=== PATIENT | male | born 1990 | race African-American/Black ===

== ENCOUNTER 2018-10-21 13:33 | Emergency (ER) | payer MEDICAID ==
[~2018-10-21] VITALS: Ht 180.3 cm; Wt 79.5 kg
[~2018-10-21 13:33] MED LIST: ALBU8.5H4 IH; TRIA15CR61 TP
[2018-10-21 13:43] VITALS: BP 116/71
[2018-10-21] MEDS ORDERED: MUPI22OI30 TOP (15:04)
[2018-10-21] MEDS ORDERED: mupirocin 2% ointment 22GM TP STA (15:04)
[2018-10-21] MEDS ORDERED: CEPH-572 PO (15:04)
== END 2018-10-21 15:48 | disposition home or self-care (01) ==
LOC: ER 13:34
DX: S61.411A Laceration without foreign body of right hand, initial encounter (principal); S61.412A Laceration without foreign body of left hand, initial encounter; S80.812A Abrasion, left lower leg, initial encounter; L08.89 Other specified local infections of the skin and subcutaneous tissue; J45.909 Unspecified asthma, uncomplicated; Z59.0 Homelessness; Z56.0 Unemployment, unspecified; Z88.5 Allergy status to narcotic agent; Z88.0 Allergy status to penicillin; W01.0XXA Fall on same level from slipping, tripping and stumbling without subsequent striking against object, initial encounter; Y93.02 Activity, running; Y92.89 Other specified places as the place of occurrence of the external cause; Y99.9 Unspecified external cause status
CPT/HCPCS: 99284

== ENCOUNTER 2019-03-14 11:44 | Emergency (ER) | payer MEDICAID, OTHER ==
[~2019-03-14] VITALS: Ht 180.3 cm; Wt 8.0 kg
[~2019-03-14 11:44] MED LIST changes: +CEPH-571 PO
[2019-03-14] MEDS ORDERED: TETanus/Pertussis (Acell)/Diphther VAC/PF (Tdap-Adult) 0.5ml syringe IM ONE (11:55)
[2019-03-14] MEDS ORDERED: LIDOcaine 1% w/EPI 1:200,000 injection 10mL vial IM ONE (11:55)
[2019-03-14 12:00] VITALS: BP 125/76
[2019-03-14] MEDS ORDERED: LIDOcaine 1% W/epiNEPHrine 1:100,000 20ml vial IJ ONE (12:00)
== END 2019-03-14 13:22 | disposition home or self-care (01) ==
LOC: ER 11:45
DX: S61.011A Laceration without foreign body of right thumb without damage to nail, initial encounter (principal); J45.909 Unspecified asthma, uncomplicated; F15.90 Other stimulant use, unspecified, uncomplicated; Z59.0 Homelessness; Z56.0 Unemployment, unspecified; Z88.5 Allergy status to narcotic agent; Z88.0 Allergy status to penicillin; W26.0XXA Contact with knife, initial encounter; Y93.89 Activity, other specified; Y92.89 Other specified places as the place of occurrence of the external cause; Y99.9 Unspecified external cause status
CPT/HCPCS: 12001; 90471; 99283

== ENCOUNTER 2019-07-09 16:11 | Emergency (ER) | payer MEDICAID, OTHER ==
[~2019-07-09] VITALS: Ht 154.9 cm; Wt 79.0 kg
[2019-07-09] MEDS ORDERED: ipratropium/albuterol 3ml nebule NEB ONE (17:10)
[2019-07-09] MEDS ORDERED: predniSONE 20 mg tablet PO ONE (17:10)
[2019-07-09] MEDS ORDERED: PRED20TA PO (17:11)
[2019-07-09] MEDS ORDERED: ALBU8HFA PO (17:15)
--- NOTE | 2019-07-09 17:40 | NUR ---
RT AT BEDSIDE.
--- NOTE | 2019-07-09 17:57 | NUR ---
NO PEAK FLOWS AVAILABLE. NICANOR PAYNE NOTIFIED
[2019-07-09 18:11] VITALS: BP 110/72
== END 2019-07-09 18:12 | disposition home or self-care (01) ==
LOC: ER 16:11
DX: J45.901 Unspecified asthma with (acute) exacerbation (principal); J06.9 Acute upper respiratory infection, unspecified; F15.90 Other stimulant use, unspecified, uncomplicated; Z59.0 Homelessness; Z56.0 Unemployment, unspecified; Z88.5 Allergy status to narcotic agent; Z88.0 Allergy status to penicillin; Z79.899 Other long term (current) drug therapy
CPT/HCPCS: 94640; 99283; J7512; 94760

== ENCOUNTER 2020-01-16 03:02 | Emergency (ER) | payer OTHER ==
[~2020-01-16] VITALS: Ht 180.3 cm; Wt 79.5 kg
--- NOTE | 2020-01-16 03:10 | NUR ---
patient in bed hob at 45 degrees rr even un labored airway patent will continue to monitor
--- NOTE | 2020-01-16 04:03 | NUR ---
patient in bed hob 45% rr even un labored patient easy to arouse aox4 observably sleepy, airway patent, will continue to monitor
--- NOTE | 2020-01-16 05:03 | NUR ---
Patient in bed covers on hob at 45 degrees eyes closed rr even unlabored airway patent [id number] easy to arouse will continue to observe
--- NOTE | 2020-01-16 05:41 | NUR ---
patient in bed eyes closed hob 45 degrees rr even un labored airway patent aox4 easy to arouse will continue to monitor
[2020-01-16 05:42] VITALS: BP 125/79
== END 2020-01-16 06:03 | disposition home or self-care (01) ==
LOC: ER 03:03
DX: T50.901A Poisoning by unspecified drugs, medicaments and biological substances, accidental (unintentional), initial encounter (principal); F15.90 Other stimulant use, unspecified, uncomplicated; Z56.0 Unemployment, unspecified; Z59.0 Homelessness; Z88.5 Allergy status to narcotic agent; Z88.0 Allergy status to penicillin; Z79.2 Long term (current) use of antibiotics; Z79.899 Other long term (current) drug therapy; Y92.89 Other specified places as the place of occurrence of the external cause
CPT/HCPCS: 99284

== ENCOUNTER 2020-11-15 20:22 | Inpatient (IN) | payer MEDICAID ==
[~2020-11-15] VITALS: Ht 180.3 cm; Wt 77.3 kg
[2020-11-15] MEDS ORDERED: normal saline 1000ML IV soln IVB ONE (20:25)
[2020-11-15] MEDS ORDERED: ketorolac trometh. 30mg/ml inj. IV ONE (20:25)
[2020-11-15] MEDS ORDERED: ondansetron/PF 4mg/2ml inj IV ONE (20:25)
[2020-11-15] MEDS ORDERED: temazepam 15mg capsule PO PRN (21:00)
[2020-11-15 21:27] LABS: EOSINOPHILS % (AUTO) 0.1 % (0-6); LYMPHOCYTES # (AUTO) 0.4 X10'3 (1.1-4.8); RED CELL DISTRIBUTION WIDTH 13.3 % (11.5-14.5); WHITE BLOOD COUNT 15.4 X10'3 (4.5-11.0)
[2020-11-15 21:28] LABS: BASOPHILS % (AUTO) 0.2 % (0-1); HEMATOCRIT 46.4 % (42.0-52.0); HEMOGLOBIN 16.1 g/dl (14.0-17.9); LYMPHOCYTES % (AUTO) 2.6 % (21-51); MEAN CORPUSCULAR HEMOGLOBIN 29.5 PG (27.0-31.0); MEAN CORPUSCULAR HGB CONC 34.6 g/dL (33.0-36.5); MEAN CORPUSCULAR VOLUME 85.3 FL (78-98); MEAN PLATELET VOLUME 7.6 FL (7.4-10.4); MONOCYTES # (AUTO) 0.3 X10'3 (0-0.9); MONOCYTES % (AUTO) 2.1 % (2-12); NEUTROPHILS # (AUTO) 14.7 X10'3 (1.8-7.7); PLATELET COUNT 379 X10'3 (140-440); RED BLOOD COUNT 5.45 X10'6 (4.70-6.10)
--- NOTE | 2020-11-15 21:31 | NUR ---
Pt stated he is unable to urinate due to dehydration. Pt states that he hasn't drank anything all day.
[2020-11-15] MEDS ORDERED: acetaminophen 325mg tablet PO ONE (21:50)
[2020-11-15] MEDS ORDERED: normal saline 1000ML IV soln IV ONE (21:50)
[2020-11-15] MEDS ORDERED: CefTRIAXone 2gm/D5W 50ml BAG 50 ML IV ONE (21:50)
[2020-11-15] MEDS ORDERED: doxycycline inj 100 MG in normal saline 100ml IV soln 100 ML IV ONE (21:57)
[2020-11-15] MEDS ORDERED: morphine 2 MG/ML inj. syringe IV PRN ×2 (22:45)
[2020-11-15] MEDS ORDERED: magnesium hydroxide 30ml (MOM) UD suspension PO PRN (22:45)
[2020-11-15] MEDS ORDERED: ipratropium/albuterol 3ml nebule NEB PRN (22:45)
[2020-11-15] MEDS ORDERED: diphenhydrAMINE 50 mg/ml inj IV PRN (22:45)
[2020-11-15] MEDS ORDERED: mag hydrox/Alum hydrox/simeth 30ml oral suspension PO PRN (22:45)
[2020-11-15] MEDS ORDERED: diphenhydrAMINE 25mg capsule PO PRN (22:45)
[2020-11-15] MEDS ORDERED: bisacodyl 10mg suppository rectal RC PRN (22:45)
[2020-11-15] MEDS ORDERED: acetaminophen 650mg rectal suppository RC PRN (22:45)
[2020-11-15] MEDS ORDERED: ondansetron 4mg rapidly disintigrating tab PO PRN (22:45)
[2020-11-15] MEDS ORDERED: ondansetron/PF 4mg/2ml inj IV PRN (22:45)
[2020-11-15] MEDS: normal saline 1000ml 1,000 ML IV SCH (22:45)
[2020-11-15 23:26] LABS: ALANINE AMINOTRANSFERASE 21 U/L (12-78); ALBUMIN 3.1 G/DL (3.4-5.0); ALBUMIN/GLOBULIN RATIO 0.7 (1.1-1.5); ALKALINE PHOSPHATASE 65 IU/L (46-116); ANION GAP 10 (8-16); ASPARTATE AMINO TRANSFERASE 23 U/L (10-37); BILIRUBIN,TOTAL 0.9 MG/DL (0.1-1.0); BLOOD UREA NITROGEN 21 MG/DL (7-18); BUN/CREATININE RATIO 13.7 (5.4-32.0); CALCIUM 8.6 MG/DL (8.5-10.1); CHLORIDE 99 MMOL/L (99-107); CREATININE 1.53 MG/DL (0.60-1.10); GLUCOSE 109 MG/DL (70-104); LIPASE 51 U/L (73-393); POTASSIUM 4.7 MMOL/L (3.5-5.1); SODIUM 135 MMOL/L (135-145); TOTAL CARBON DIOXIDE 25.9 MMOL/L (24-32); TOTAL PROTEIN 7.3 G/DL (6.4-8.2); eGFR 64 ML/MIN
[2020-11-15 23:48] LABS: HEMOGLOBIN A1C 5.6 % (4.5-6.2)
[2020-11-15] MEDS ORDERED: NO HOME MEDS (23:52)
[2020-11-15 23:59] LABS: MAGNESIUM 1.5 MG/DL (1.5-2.4); PHOSPHORUS 3.2 MG/DL (2.3-4.5)
[2020-11-16 01:18] LABS: PARTIAL THROMBOPLASTIN TIME 32 SECONDS (22-32)
[2020-11-16 02:23] LABS: COLOR,URINE YELLOW (Yellow); GLUCOSE, URINE NEGATIVE (Neg); KETONES,URINE NEGATIVE (Neg); LEUKOCYTE ESTERASE ,URINE MODERATE (Neg); NITRITES, URINE NEGATIVE (Neg); OCCULT BLOOD,URINE NEGATIVE (Neg); PH,URINE 6.5 (4.8-8.0); PROTEIN,URINE NEGATIVE (Neg)
[2020-11-16 02:32] LABS: CLARITY,URINE SLIGHTLY CLOUDY (Clear); UA COLLECTION TYPE CLN CATCH MIDSTREAM
[2020-11-16 02:33] LABS: BACTERIA,URINE FEW /HPF (Neg); RBC,URINE NONE SEEN /HPF (0-2); SQUAMOUS EPITHELIAL CELL,UR FEW /LPF (FEW); WBC CLUMPS,URINE FEW /HPF (NEGATIVE)
--- NOTE | 2020-11-16 03:56 | NUR ---
Pt asleep with observed chest rise and fall.
[2020-11-16] MEDS ORDERED: ipratropium/albuterol 3ml nebule IH PRN (04:50)
[2020-11-16 06:38] LABS: BASOPHILS % (AUTO) 0.3 % (0-1); EOSINOPHILS % (AUTO) 0.2 % (0-6); HEMATOCRIT 45.8 % (42.0-52.0); HEMOGLOBIN 15.5 g/dl (14.0-17.9); LYMPHOCYTES # (AUTO) 0.4 X10'3 (1.1-4.8); LYMPHOCYTES % (AUTO) 4.7 % (21-51); MEAN CORPUSCULAR HEMOGLOBIN 29.2 PG (27.0-31.0); MEAN CORPUSCULAR HGB CONC 33.9 g/dL (33.0-36.5); MEAN CORPUSCULAR VOLUME 86.3 FL (78-98); MEAN PLATELET VOLUME 8.5 FL (7.4-10.4); MONOCYTES # (AUTO) 0.2 X10'3 (0-0.9); NEUTROPHILS # (AUTO) 7.6 X10'3 (1.8-7.7); NEUTROPHILS % (AUTO) 92.8 % (42-75); PLATELET COUNT 302 X10'3 (140-440); RED BLOOD COUNT 5.31 X10'6 (4.70-6.10); RED CELL DISTRIBUTION WIDTH 13.8 % (11.5-14.5); WHITE BLOOD COUNT 8.1 X10'3 (4.5-11.0)
[2020-11-16 07:40] LABS: ALANINE AMINOTRANSFERASE 34 U/L (12-78); ALBUMIN 2.4 G/DL (3.4-5.0); ALBUMIN/GLOBULIN RATIO 0.6 (1.1-1.5); ALKALINE PHOSPHATASE 60 IU/L (46-116); ANION GAP 9 (8-16); BILIRUBIN,TOTAL 0.6 MG/DL (0.1-1.0); BLOOD UREA NITROGEN 21 MG/DL (7-18); BUN/CREATININE RATIO 15.6 (5.4-32.0); CALCIUM 7.9 MG/DL (8.5-10.1); CHLORIDE 104 MMOL/L (99-107); CHOL/HDL RATIO 1.7 (0.00-4.99); CHOLESTEROL 82 MG/DL (0-200); CREATININE 1.35 MG/DL (0.60-1.10); GLUCOSE 81 MG/DL (70-104); HDL CHOLESTEROL 47 MG/DL (35-60); LDL CHOLESTEROL 20 MG/DL (50-100); SODIUM 138 MMOL/L (135-145); TOTAL CARBON DIOXIDE 24.8 MMOL/L (24-32); TOTAL PROTEIN 6.4 G/DL (6.4-8.2); TRIGLYCERIDES 31 MG/DL (20-135); eGFR 74 ML/MIN
[2020-11-16 07:41] LABS: ASPARTATE AMINO TRANSFERASE 41 U/L (10-37)
[2020-11-16] MEDS: nicotine 21mg patch - 24 hr TD SCH (07:59)
[2020-11-16] MEDS: docusate sod 100mg capsule PO SCH ×2 (07:59→20:03)
[2020-11-16] MEDS: CefTRIAXone/D5W-Rocephin 1gm 50 ML IV SCH ×2 (07:59→20:04)
[2020-11-16] MEDS: heparin, porcine 5000 units/ml vial SQ SCH ×2 (08:00→20:04)
[2020-11-16] MEDS: pantoprazole 40mg Tablet.DR PO SCH (08:00)
[2020-11-16] MEDS: azithromycin/NS 500mg/250ml 250 ML IV SCH (08:40)
[2020-11-16] MEDS: normal saline 1000ml 1,000 ML IV SCH ×2 (08:45→18:45)
--- NOTE | 2020-11-16 09:37 | NUR ---
PT REQUESTING BREATHING TREATMENT, PAGE RT.
--- NOTE | 2020-11-16 09:45 | NUR ---
PT RECEIVING BREATHING TREATMENT.
[2020-11-16 10:09] LABS: URINE AMPHETAMINE SCREEN POSITIVE (Neg); URINE BARBITUATE SCREEN NEGATIVE (Neg); URINE BENZODIAZEPINES SCREEN NEGATIVE (Neg); URINE CANNABINOID SCREEN NEGATIVE (Neg); URINE COCAINE SCREEN NEGATIVE (Neg); URINE METHADONE SCREEN NEGATIVE (Neg); URINE OPIATE SCREEN NEGATIVE (Neg); URINE PHENCYCLIDINE SCREEN NEGATIVE (Neg)
[2020-11-16 11:05] LABS: PLATELET ESTIMATE NORMAL; TOTAL CELLS COUNTED 100
[2020-11-16 11:06] LABS: BURR CELLS FEW
[2020-11-16 11:07] LABS: ACANTHOCYTES FEW; SCHISTOCYTES FEW; TOXIC VACUOLATION 2+
[2020-11-16] MEDS: HYDROcodone/acetaminophen 5mg/325mg tablet PO PRN (11:53)
[2020-11-16 12:03] VITALS: BP 104/69
[2020-11-16 15:00] VITALS: BP 109/71
[2020-11-16 18:00] VITALS: BP 108/68
[2020-11-16] MEDS: acetaminophen 325mg tablet PO PRN (18:01)
--- NOTE | 2020-11-16 18:27 | NUR ---
Patient in room PCU 3024. I have received report from Luisa ELDER and had the opportunity to ask questions and assume patient care. Rounded on patient and introduced self. Patient would like a shower tonight, denies other needs.
[2020-11-16] MEDS: lactobacillus rhamnosus 10,000 MMU CELLS/CAPSULE PO SCH (20:03)
[2020-11-16 20:22] VITALS: BP 116/73
--- NOTE | 2020-11-16 20:22 | NUR ---
Patient had 11 beat run of ventricular tachycardia. Patient remained asymptomatic, BP: 116/73, HR 105, RR 20, SpO2 95% RA. Patient has no complaints of chest pain or shortness of breath. Patient is sleeping. Notified Dr. Prescott via telephone, no new orders.
[2020-11-16] MEDS ORDERED: albuterol 2.5 MG/3 ML nebule NEB PRN (21:05)
[2020-11-16 22:00] VITALS: BP 122/78
--- NOTE | 2020-11-17 01:25 | NUR ---
During hourly rounds patient was laying on left side and complaining of right sided non radiating neck pain. Patient has full range of motion and can touch chin to chest. Patient denies pain on palpation. Encouraged patient to change position to see if this helps. Will continue to monitor.
[2020-11-17 02:00] VITALS: BP 115/65
[2020-11-17] MEDS: acetaminophen 325mg tablet PO PRN (02:25)
[2020-11-17] MEDS: normal saline 1000ml 1,000 ML IV SCH ×3 (04:45→17:52)
--- NOTE | 2020-11-17 05:40 | NUR ---
Patient slept all shift. Patient slept in slouched position, attempted to support head and neck with pillow and encouraged repositioning to alleviate neck pain.
[2020-11-17 06:00] VITALS: BP 100/72
--- NOTE | 2020-11-17 06:24 | NUR ---
Problems reprioritized. Patient report given, questions answered & plan of care reviewed with Trinidad ELDER.
--- NOTE | 2020-11-17 06:40 | NUR ---
Patient in room PCU 3021T. I have received report from JERROD SALINAS and had the opportunity to ask questions and assume patient care.
[2020-11-17 07:26] LABS: BASOPHILS % (AUTO) 0.3 % (0-1); EOSINOPHILS # (AUTO) 0.3 X10'3 (0-0.9); EOSINOPHILS % (AUTO) 2.2 % (0-6); HEMATOCRIT 42.3 % (42.0-52.0); LYMPHOCYTES # (AUTO) 0.9 X10'3 (1.1-4.8); MEAN CORPUSCULAR HEMOGLOBIN 28.8 PG (27.0-31.0); MEAN CORPUSCULAR HGB CONC 33.1 g/dL (33.0-36.5); MEAN CORPUSCULAR VOLUME 86.9 FL (78-98); MEAN PLATELET VOLUME 8.2 FL (7.4-10.4); MONOCYTES # (AUTO) 0.4 X10'3 (0-0.9); MONOCYTES % (AUTO) 2.9 % (2-12); NEUTROPHILS # (AUTO) 13.5 X10'3 (1.8-7.7); NEUTROPHILS % (AUTO) 88.6 % (42-75); PLATELET COUNT 268 X10'3 (140-440); RED BLOOD COUNT 4.87 X10'6 (4.70-6.10); RED CELL DISTRIBUTION WIDTH 13.2 % (11.5-14.5); WHITE BLOOD COUNT 15.2 X10'3 (4.5-11.0)
[2020-11-17 07:49] LABS: ALANINE AMINOTRANSFERASE 26 U/L (12-78); ALBUMIN 2.2 G/DL (3.4-5.0); ALBUMIN/GLOBULIN RATIO 0.5 (1.1-1.5); ALKALINE PHOSPHATASE 72 IU/L (46-116); ANION GAP 10 (8-16); ASPARTATE AMINO TRANSFERASE 25 U/L (10-37); BILIRUBIN,TOTAL 0.3 MG/DL (0.1-1.0); BLOOD UREA NITROGEN 12 MG/DL (7-18); CALCIUM 8.8 MG/DL (8.5-10.1); CHLORIDE 102 MMOL/L (99-107); GLUCOSE 82 MG/DL (70-104); POTASSIUM 4.3 MMOL/L (3.5-5.1); SODIUM 136 MMOL/L (135-145); TOTAL PROTEIN 6.5 G/DL (6.4-8.2); eGFR 85 ML/MIN
[2020-11-17] MEDS: budesonide 0.5mg/2ml UD nebule IH SCH ×2 (08:00→20:14)
[2020-11-17] MEDS: ipratropium/albuterol 3ml nebule NEB SCH ×2 (08:05→20:15)
[2020-11-17 08:34] LABS: TOTAL CELLS COUNTED 100
[2020-11-17 08:54] LABS: PLATELET ESTIMATE NORMAL
[2020-11-17 08:55] LABS: BURR CELLS 1+
[2020-11-17] MEDS: CefTRIAXone/D5W-Rocephin 1gm 50 ML IV SCH (09:30)
[2020-11-17] MEDS: heparin, porcine 5000 units/ml vial SQ SCH ×2 (09:30→19:42)
[2020-11-17] MEDS: lactobacillus rhamnosus 10,000 MMU CELLS/CAPSULE PO SCH ×2 (09:31→19:43)
[2020-11-17] MEDS: docusate sod 100mg capsule PO SCH ×2 (09:31→19:42)
[2020-11-17] MEDS: nicotine 21mg patch - 24 hr TD SCH (09:31)
[2020-11-17] MEDS: pantoprazole 40mg Tablet.DR PO SCH (09:33)
[2020-11-17] MEDS: azithromycin/NS 500mg/250ml 250 ML IV SCH (10:38)
[2020-11-17 11:00] VITALS: BP 110/68
[2020-11-17 15:00] VITALS: BP 123/73
[2020-11-17 18:00] VITALS: BP 117/75
--- NOTE | 2020-11-17 18:27 | NUR ---
Problems reprioritized. Patient report given, questions answered & plan of care reviewed with JERROD JENKINS.
--- NOTE | 2020-11-17 18:34 | NUR ---
Patient in room PCU 3024. I have received report from Trinidad ELDER and had the opportunity to ask questions and assume patient care.
[2020-11-17] MEDS: HYDROcodone/acetaminophen 5mg/325mg tablet PO PRN (19:43)
[2020-11-17] MEDS ORDERED: vancomycin inj 1,000 MG in normal saline 250ml IV soln 250 ML IV ONE (19:45)
[2020-11-17] MEDS: cefepime 2g/NS 100ml ADVANTAGE 100 ML IV SCH (21:34)
[2020-11-17 22:00] VITALS: BP 122/74
[2020-11-17] MEDS: vancomycin inj 1,000 MG in normal saline 250ml IV soln 250 ML IV SCH (23:08)
[2020-11-18] MEDS: vancomycin inj 1,000 MG in normal saline 250ml IV soln 250 ML IV SCH (01:28)
[2020-11-18 02:00] VITALS: BP 117/68
--- NOTE | 2020-11-18 04:10 | NUR ---
Spoke to patient regarding communicating with sister Ketan Whitmore. Patient is comfortable with staff talking to her about his care. Please call her if anything changes. [phone]
[2020-11-18] MEDS: normal saline 1000ml 1,000 ML IV SCH (05:44)
[2020-11-18 06:00] VITALS: BP 117/58
--- NOTE | 2020-11-18 06:21 | NUR ---
Problems reprioritized. Patient report given, questions answered & plan of care reviewed with Anjali ELDER.
--- NOTE | 2020-11-18 06:29 | NUR ---
Patient in room PCU 3024. I have received report from Radha ELDER and had the opportunity to ask questions and assume patient care.
[2020-11-18 07:14] LABS: BASOPHILS # (AUTO) 0.1 X10'3 (0-0.2); BASOPHILS % (AUTO) 0.5 % (0-1); EOSINOPHILS # (AUTO) 0.4 X10'3 (0-0.9); EOSINOPHILS % (AUTO) 3.2 % (0-6); HEMATOCRIT 36.9 % (42.0-52.0); HEMOGLOBIN 12.6 g/dl (14.0-17.9); LYMPHOCYTES % (AUTO) 8.8 % (21-51); MEAN CORPUSCULAR HEMOGLOBIN 29.1 PG (27.0-31.0); MEAN CORPUSCULAR HGB CONC 34.2 g/dL (33.0-36.5); MEAN CORPUSCULAR VOLUME 85.2 FL (78-98); MEAN PLATELET VOLUME 8.2 FL (7.4-10.4); MONOCYTES # (AUTO) 0.8 X10'3 (0-0.9); MONOCYTES % (AUTO) 6.9 % (2-12); NEUTROPHILS # (AUTO) 9.3 X10'3 (1.8-7.7); NEUTROPHILS % (AUTO) 80.6 % (42-75); PLATELET COUNT 293 X10'3 (140-440); RED BLOOD COUNT 4.33 X10'6 (4.70-6.10); RED CELL DISTRIBUTION WIDTH 13.3 % (11.5-14.5); WHITE BLOOD COUNT 11.6 X10'3 (4.5-11.0)
[2020-11-18] MEDS: cefepime 2g/NS 100ml ADVANTAGE 100 ML IV SCH (07:37)
[2020-11-18] MEDS: lactobacillus rhamnosus 10,000 MMU CELLS/CAPSULE PO SCH (07:40)
[2020-11-18] MEDS: pantoprazole 40mg Tablet.DR PO SCH (07:40)
[2020-11-18] MEDS: docusate sod 100mg capsule PO SCH (07:41)
[2020-11-18] MEDS: heparin, porcine 5000 units/ml vial SQ SCH (07:43)
[2020-11-18 07:46] LABS: ALANINE AMINOTRANSFERASE 34 U/L (12-78); ALBUMIN/GLOBULIN RATIO 0.5 (1.1-1.5); ALKALINE PHOSPHATASE 66 IU/L (46-116); ANION GAP 9 (8-16); ASPARTATE AMINO TRANSFERASE 26 U/L (10-37); BILIRUBIN,TOTAL 0.2 MG/DL (0.1-1.0); BLOOD UREA NITROGEN 10 MG/DL (7-18); BUN/CREATININE RATIO 10.8 (5.4-32.0); CALCIUM 8.5 MG/DL (8.5-10.1); CHLORIDE 104 MMOL/L (99-107); CREATININE 0.93 MG/DL (0.60-1.10); GLUCOSE 91 MG/DL (70-104); POTASSIUM 3.4 MMOL/L (3.5-5.1); SODIUM 137 MMOL/L (135-145); TOTAL CARBON DIOXIDE 24.3 MMOL/L (24-32); TOTAL PROTEIN 6.2 G/DL (6.4-8.2); eGFR > 90 ML/MIN
[2020-11-18] MEDS: ipratropium/albuterol 3ml nebule NEB SCH ×2 (07:46→14:53)
[2020-11-18] MEDS: budesonide 0.5mg/2ml UD nebule IH SCH (07:46)
[2020-11-18] MEDS: nicotine 21mg patch - 24 hr TD SCH (08:00)
[2020-11-18] MEDS ORDERED: vancomycin/NS 1 GM ADD-VANTAGE 250 ML IV SCH (08:00)
[2020-11-18] MEDS ORDERED: potassium Cl 40MEQ/1/2NS 520ml 520 ML IV PRN ×2 (10:30)
[2020-11-18] MEDS ORDERED: potassium Cl 20 mEq SR tablet PO PRN ×2 (10:30)
[2020-11-18] MEDS ORDERED: LEVO750T46 PO (10:58)
[2020-11-18] MEDS ORDERED: NICO-687 TD ×2 (10:58)
[2020-11-18 11:00] VITALS: BP 124/67
[2020-11-18] MEDS ORDERED: levoFLOXACIN 500mg tablet PO SCH (11:00)
[2020-11-18] MEDS ORDERED: levoFLOXACIN 750MG TABLET PO SCH (11:00)
--- NOTE | 2020-11-18 15:30 | NUR ---
Patient stable for discharge per MD. DC'd PIV with cannula intact, DC'd tele. Per Alvina pts prescription paid for by hospital at [facility] on [address]. Hospital provided safe transportation via [employer]. Pt verbalized understanding of discharge paperwork and medication regimine.
[2020-11-18] MEDS ORDERED: K and/or MAG REPLACEMENT MC SCH (20:00)
[2020-11-19] MEDS ORDERED: VANCOMYCIN LEVEL IV ONE (07:30)
== END 2020-11-18 15:19 | disposition home or self-care (01) | DRG 720 ==
LOC: ER 20:23 → ED HOLD 22:45 → PCU 3S 11-16 11:22
PROVIDERS: ADMIT Family Medicine; ATTEND Family Medicine
DX: A40.3 Sepsis due to Streptococcus pneumoniae (principal); N17.0 Acute kidney failure with tubular necrosis; J18.9 Pneumonia, unspecified organism; E86.0 Dehydration; E86.1 Hypovolemia; F17.210 Nicotine dependence, cigarettes, uncomplicated; J45.909 Unspecified asthma, uncomplicated; Z59.0 Homelessness; F15.10 Other stimulant abuse, uncomplicated; Z88.0 Allergy status to penicillin; Z88.8 Allergy status to other drugs, medicaments and biological substances; M54.5 Low back pain; Z20.822 Contact with and (suspected) exposure to COVID-19
CPT/HCPCS: 36415; 70450; 71045; 74176; 80053; 80061; 80305; 81001; 83036; 83605; 83690; 83735; 83880; 84100; 84145; 84443; 85007; 85025; 85610; 85730; 87040; 87070; 87077; 87081; 87088; 87186; 87635; 94640; 94760; 96374; 96375; 99285; C9803; G0378; J0456; J0692; J0696; J1644; J1885; J2405; J3370; J3490; J7030; J7050; J7626